=== PATIENT | female | born 2000 | race Two or more races ===

== ENCOUNTER 2024-08-06 17:50 | Emergency (ER) | payer OTHER ==
[~2024-08-06] VITALS: Ht 284.5 cm; Wt 62.1 kg
[2024-08-06] MEDS ORDERED: 0.9 % SODIUM CHLORIDE 1,000 ML IV ONE (22:45)
[2024-08-06] MEDS ORDERED: ONDANSETRON HCL 2 MG/ML VIAL IV ONE (23:00)
[2024-08-06 23:11] LABS: HEMATOCRIT 42.8 % (36.0-45.00); HEMOGLOBIN 14.4 g/dL (12.0-15.00); MEAN CELL VOLUME 81.7 fL (80.00-100.00); MEAN CORPUSCULAR HEMOGLOBIN 27.6 pg (27.00-32.0); MEAN CORPUSCULAR HGB CONC 33.7 g/dl (32.0-36.0); RED BLOOD COUNT 5.24 M/uL (4.00-6.00); RED CELL DISTRIBUTION WIDTH 13.1 % (11.5-14.5)
[2024-08-06 23:15] LABS: PH,URINE 5.5 (5.0-8.0); URINE APPEARANCE Clear; URINE BILIRRUBIN Negative (NEGATIVE); URINE BLOOD Negative; URINE COLOR Yellow; URINE GLUCOSE Negative (NEGATIVE); URINE KETONE Negative (NEGATIVE); URINE LEUKOCYTE Small; URINE NITRATE Negative; URINE PROTEIN Negative (NEGATIVE); URINE UROBILINOGEN 0.2 E.U./dl
[2024-08-06 23:17] LABS: PLATELET COUNT 107 K/uL (150-450)
[2024-08-06 23:20] LABS: URINE BACTERIA 739.2 uL (0.0-1933); URINE EPITHELIAL CELLS 22.3 uL (0.0-38.8); URINE RBC 6.7 uL (0.0-20.8); URINE WBC 16.1 uL (0.0-23.2)
[2024-08-06 23:23] LABS: URINE CAST 0.73 uL (0.0-1.40)
[2024-08-06 23:23] LABS: ALBUMIN 3.8 gm/dL (3.4-5.0); BILIRUBIN TOTAL 0.56 mg/dL (0.3-1.2); CALCIUM 8.5 mg/dL (8.5-10.1); CREATININE SERUM 1.19 mg/dL (0.55-1.02); GFR 56.21; GLOBULINA 4.2 G/DL (2.4-3.5); POTASSIUM 3.53 mEq/L (3.5-5.1)
== END 2024-08-07 01:21 | disposition home or self-care (01) ==
LOC: ER 17:52
PROVIDERS: Preventive Medicine Public Health & General Preventive Medicine
DX: B34.9 Viral infection, unspecified (principal); K52.9 Noninfective gastroenteritis and colitis, unspecified; R53.81 Other malaise; Z88.0 Allergy status to penicillin